=== PATIENT | male | born 1965 | race Caucasian/White ===

== ENCOUNTER 2017-02-14 08:09 | Emergency (ER) | payer OTHER, BC ==
[2017-02-14 08:14] VITALS: PULSE 97; TEMP 98; BMI 28.7
--- NOTE | 2017-02-14 08:23 | PDOC ---
History of Present Illness - General Chief Complaint: Pain, Acute Stated Complaint: PAIN Time Seen by Provider: 02/14/17 08:18 History Source: Patient Exam Limitations: No Limitations - History of Present Illness Initial Comments: CHIEF COMPLAINT: 51 y/o male with hx of left rotator cuff injury c/o left shoulder pain s/p lifting this morning. HISTORY OF PRESENT ILLNESS: The patient states he was lifting a cabinet when he felt a pop in his left shoulder and is now sore. He states it feels like when he torn the muscle and had to have surgery. He is currently still on pain management and PT for his left shoulder and took vicodin and meloxicam this morning. He denies all other symptoms. Vital signs on arrival are notable for BP of 179/110. REVIEW OF SYSTEMS: GENERAL/CONSTITUTIONAL: No fever/chills. No weakness. No weight change. MUSCULOSKELETAL: +left shoulder pain. No neck or back pain. SKIN: No rash or easy bruising. NEUROLOGIC: No headache, vertigo, loss of consciousness, or loss of sensation. PHYSICAL EXAM: VITAL_SIGNS: within normal limits GENERAL_APPEARANCE: alert, cooperative, mild obvious discomfort. MENTAL_STATUS: speech clear, oriented X 3, responds appropriately to questions. NEURO: motor intact and sensory intact in injured extremity. EXTREMITIES: Minimal pain elicited with palpation of left AC joint. Pt cannot abduct left arm > 90 degrees. Equal shoulder shrug and elder counselor strength b/l. SKIN: warm, dry, good color. Past History - Past Medical History Allergies/Adverse Reactions: Allergies Allergy/AdvReac Type Severity Reaction Status Date / Time No Known Drug Allergies Allergy Verified 02/14/17 08:10 mustard Allergy Difficulty Uncoded 02/14/17 08:10 Breathing Home Medications: Ambulatory Orders Levothyroxine [Synthroid -] 75 mcg PO DAILY 05/08/12 Valsartan [Diovan] 0 mg PO DAILY 05/09/14 Cyclobenzaprine HCl [Flexeril -] 10 mg PO TID PRN #14 tablet 09/12/14 Hydrocodone Bit/Acetaminophen [Vicodin Es 7.5-300mg -] 1 tab PO Q8H 09/12/14 Naproxen [Naprosyn -] 500 mg PO BID #30 tablet 09/12/14 HTN: Yes Thyroid Disease: Yes - Psycho/Social/Smoking Cessation Hx Anxiety: No Suicidal Ideation: No Smoking Status: No Smoking History: Never smoked Have you smoked in the past 12 months: No Number of Cigarettes Smoked Daily: 0 Information on smoking cessation initiated: No Hx Alcohol Use: No Drug/Substance Use Hx: No Substance Use Type: None *Physical Exam - Vital Signs Last Vital Signs Temp Pulse Resp BP Pulse Ox 98.0 F 97 H 18 179/110 100 02/14/17 08:11 02/14/17 08:11 02/14/17 08:11 02/14/17 08:11 02/14/17 08:11 Medical Decision Making - Medical Decision Making A/P: 51 y/o male with left rotator cuff injury. Instructed the patient to continue taking his home pain meds (vicodin and meloxicam) as prescribed, call his orthopedic doctor today to schedule and MRI. Will provide with a sling and instructed him to apply ice hourly and avoid lifting with left arm. Pt instructed to return to the ER with any worsening or concerning symptoms The patient verbalizes understanding of all instructions, has no further questions and is awaiting discharge. *DC/Admit/Observation/Transfer Diagnosis at time of Disposition: Rotator cuff injury Qualifiers: Encounter type: initial encounter Laterality: left Qualified Code(s): S46.002A - Unspecified injury of muscle(s) and tendon(s) of the rotator cuff of left shoulder, initial encounter - Discharge Dispostion Disposition: HOME Condition at time of disposition: Good - Referrals Referrals: Ry Ortez [Primary Care Provider] - - Patient Instructions Printed Discharge Instructions: How to Use a Sling, How To Perform RICE (Rest, Ice, Compress, Elevate) Additional Instructions: Discharge Instructions: -Use sling during the day -Continue taking your pain medication as prescribed -Call Dr. Duran today to schedule MRI -Follow RICE instructions -Return to the ER with any worsening or concerning symptoms - Post Discharge Activity Work/School Note: Back to Work
[2017-02-14 09:27] VITALS: BP 166/109
== END 2017-02-14 09:30 | disposition home or self-care (01) ==
LOC: JERFT 08:09
DX: S46.002A Unspecified injury of muscle(s) and tendon(s) of the rotator cuff of left shoulder, initial encounter (principal); X50.0XXA Overexertion from strenuous movement or load, initial encounter; X50.9XXA Other and unspecified overexertion or strenuous movements or postures, initial encounter; Y93.89 Activity, other specified; Y92.69 Other specified industrial and construction area as the place of occurrence of the external cause; Y99.0 Civilian activity done for income or pay; I10 Essential (primary) hypertension; E03.9 Hypothyroidism, unspecified
CPT/HCPCS: 99281-25

== ENCOUNTER 2017-03-02 08:36 | Emergency (ER) | payer BC, OTHER ==
[2017-03-02 08:41] VITALS: BP 172/107; PULSE 110; TEMP 98; BMI 27.2
[2017-03-02] MEDS ORDERED: KETOROLAC TROMETHAMINE 60 MG/2 ML VIAL IM ONE (09:12)
[2017-03-02] MEDS ORDERED: KETOROLAC TROMETHAMINE 60 MG/2 ML VIAL ONE (09:16)
[2017-03-02 09:36] LABS: MCH 32.9 pg (25.7-33.7); MCHC 34.9 g/dl (32.0-35.9); MEAN CELL VOLUME 94.3 fl (80-96); MEAN PLT VOLUME 8.7 fl (7.5-11.1); PLATELET COUNT 303 K/MM3 (134-434); RDW 14.5 % (11.9-15.9); WHITE BLOOD COUNT 10.1 K/mm3 (4.0-10.0)
--- NOTE | 2017-03-02 09:41 | PDOC ---
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 denies: cough, fever/chills, loss of appetite Past History - Past Medical History Allergies/Adverse Reactions: Allergies Allergy/AdvReac Type Severity Reaction Status Date / Time No Known Drug Allergies Allergy Verified 03/02/17 08:41 mustard Allergy Difficulty Uncoded 03/02/17 08:41 Breathing Home Medications: Ambulatory Orders Levothyroxine [Synthroid -] 75 mcg PO DAILY 05/08/12 Valsartan [Diovan] 0 mg PO DAILY 05/09/14 Cyclobenzaprine HCl [Flexeril -] 10 mg PO TID PRN #14 tablet 09/12/14 Hydrocodone Bit/Acetaminophen [Vicodin Es 7.5-300mg -] 1 tab PO Q8H 09/12/14 Naproxen [Naprosyn -] 500 mg PO BID #30 tablet 09/12/14 HTN: Yes Thyroid Disease: Yes - Psycho/Social/Smoking Cessation Hx Anxiety: No Suicidal Ideation: No Smoking Status: No Smoking History: Never smoked Have you smoked in the past 12 months: No Number of Cigarettes Smoked Daily: 0 Hx Alcohol Use: Yes (SOCIAL) Drug/Substance Use Hx: No Substance Use Type: None Review of Systems - Review of Systems Constitutional: No: Chills, Fever, Malaise HEENTM: No: Blurred Vision, Tearing, Nose Pain Respiratory: No: Symptoms reported, Cough Cardiac (ROS): No: Symptoms Reported ABD/GI: No: Symptoms Reported Musculoskeletal: Yes: Joint Pain, Joint Swelling, Other (LEFT JOINT HOT). No: Gout *Physical Exam - Vital Signs Last Vital Signs Temp Pulse Resp BP Pulse Ox 98.0 F 110 H 20 172/107 97 03/02/17 08:37 03/02/17 08:37 03/02/17 08:37 03/02/17 08:37 03/02/17 08:37 - Physical Exam General Appearance: Yes: Appropriately Dressed. No: Apparent Distress HEENT: negative: TMs Normal, Pharynx Normal Neck: positive: Supple. negative: Rigid Respiratory/Chest: negative: Lungs Clear Musculoskeletal: positive: Other (LEFT KNEE= MILD STS; WARM TO TOUCH; NO REDNESS ; PAIN INCREASES WITH FLEXION > 90; NO LAXITY) ED Treatment Course - LABORATORY CBC & Chemistry Diagram: 03/02/17 08:53 - Medications Given in the ED: ED Medications Discontinued Medications Generic Name Dose Route Start Last Admin Trade Name Mekhiq PRN Reason Stop Dose Admin Ketorolac Tromethamine 60 mg 03/02/17 09:12 03/02/17 09:21 Toradol Injection - IM 03/02/17 09:13 60 mg ONCE ONE Administration Medical Decision Making - Medical Decision Making 03/02/17 10:43 URIC ACID= WNL; LYME PENDING; SLIGHT ELEVATION WBC; WILL TREAT WITH DOXY FOR WHAT APPEARS TO BE SKIN LESIONS ON BOTH FEET; PT TOLD TO FOLLOW UP WITH PCP IF LYME TITER ELEVATED; DOXY WILL NEED TO BE EXTENDED *DC/Admit/Observation/Transfer Diagnosis at time of Disposition: Local infection of wound Left knee pain Qualifiers: Chronicity: acute Qualified Code(s): M25.562 - Pain in left knee - Discharge Dispostion Disposition: HOME Condition at time of disposition: Stable Admit: No - Patient Instructions Additional Instructions: PLEASE TAKE MOTRIN 400MG 3 TIMES DAILY; FOLLOW UP WITH LOCAL MD THIS WEEK
[2017-03-02 11:48] LABS: ERYTHROCYTE SEDIMENTATION RATE 14 mm/hr (0-20)
== END 2017-03-02 10:52 | disposition home or self-care (01) ==
LOC: JERFT 08:36
DX: L08.9 Local infection of the skin and subcutaneous tissue, unspecified (principal); M25.562 Pain in left knee; I10 Essential (primary) hypertension; E07.9 Disorder of thyroid, unspecified
CPT/HCPCS: 36415; 84550; 85027; 85651; 86618; 99281-25